=== PATIENT | male | born 1965 | race African-American/Black ===

== ENCOUNTER 2017-07-24 03:04 | Emergency (ER) | payer SELFPAY ==
--- NOTE | 2017-07-24 03:42 | PD ---
HPI Chief Complaint: Code Blue Time Seen by Provider: 03:36 Travel History International Travel<30 days: No Contact w/Intl Traveler<30days: No Traveled to known affect area: No History of Present Illness HPI So 52-year-old man who presents to the emergency department brought in by EMS in cardiac arrest. Report is that noticed seizure-like activity. Called EMS. On their arrival he had a agonal wide complex PEA rhythm. They initiated ACLS. He had multiple doses of epinephrine. He had a Combitube placed. Continued CPR. They had improvement to a narrow complex rhythm however they never had return of spontaneous circulation. He had V. fib once, and received defibrillation one time. Blood sugar was normal. Medical history is unknown at the time of my exam. History Past Medical History Narrative Medical Unknown Social History Tobacco Use: No Review of Systems ROS Limitations: Clinical Condition Physical Exam Narrative GENERAL: Obtunded 52-year-old man, full cardiac arrest. SKIN: Clammy and cold. HEAD: Atraumatic. Normocephalic. EYES: Pupils fixed and dilated. ENT: No nasal bleeding or discharge. Mucous membranes pink and moist. NECK: Trachea midline. No JVD. CARDIOVASCULAR: Pulseless. RESPIRATORY: No spontaneous respiratory effort. Coarse breath sounds with bag- valve-mask ventilation. GASTROINTESTINAL: Abdomen is distended and taut. MUSCULOSKELETAL: No obvious deformities. No edema. NEUROLOGICAL: Obtunded. No response to any stimuli. Pupils fixed and dilated. MDM Medical Decision Making Medical Screen Exam Complete: Yes Emergency Medical Condition: Yes Differential Diagnosis Head bleed, arrhythmia, PE, ruptured AAA, dissection, other Narrative Course Medical decision making 52-year-old man presents emergent harmful cardiac arrest. Patient was agonal PEA on arrival, is asystolic on initial pulse check here. CPR was continued. Combitube was removed and patient was intubated without difficulty. ACLS protocol was continued. Despite this patient remained asystolic or with an occasional wide agonal PEA complex. No signs of life. Bedside ultrasound shows 0 cardiac activity. Abdominal distention appears to be related to stomach distention from Combitube. Rapid bedside ultrasound does not show any obvious hemoperitoneum or evidence of ruptured AAA. Despite maximum attempt at resuscitation, patient remained asystolic, and he was pronounced at 0318. Procedures Procedure Narrative Point of care ultrasound: Point of care ultrasound was used intraorally arrest to determine etiology of PEA. No cardiac motion was seen. No Amount was identified. No hemo- peritoneum was seen. Intubation: During CPR, Combitube was pulled. Using a Thornton 2, 8.0 ET tube was placed. Confirmation was with positive bilateral breath sounds, and good end-tidal CO2 return. Diagnosis Primary Impression: Cardiac arrest Disposition: 20 Grant Rendon MD Jul 24, 2017 03:42
== END 2017-07-24 06:48 | disposition expired ==
LOC: NEPC 03:04 → NEPI 06:48
DX: I46.9 Cardiac arrest, cause unspecified (principal)
CPT/HCPCS: 92950